=== PATIENT | female | born 1980 | race Caucasian/White ===

== ENCOUNTER 2017-06-17 09:50 | Emergency (ER) | payer OTHER ==
[~2017-06-17] VITALS: Ht 165.1 cm; Wt 53.0 kg
[2017-06-17 09:52] VITALS: Ht 165.1 cm; Wt 53.0 kg
[2017-06-17] MEDS ORDERED: HYDROCODONE/APAP (5/325) TAB PO STA (10:14)
--- NOTE | 2017-06-17 10:28 | ERD ---
ER Documentation Chief Complaint Date/Time DATE: 06/17/17 TIME: 10:24 Chief Complaint Complains of flank pain x 3 days HPI 36 year old female with history of ulcer presenting to the emergency depart complaining of moderate to severe left flank pain for the past three days. Patient denies fevers, nausea, vomiting, diarrhea, constipation, dysuria. She does admit that she started to have mild suprapubic pain today. Denies hematuria , denies taking medications ROS All systems reviewed and are negative except as per history of present illness. Medications Home Meds Active Scripts Metronidazole* (Flagyl*) 500 Mg Tablet, 500 MG PO TID for 7 Days, TAB Prov:LESVIA MILLARD PA-C 06/17/17 Ciprofloxacin Hcl* (Ciprofloxacin Hcl*) 500 Mg Tablet, 500 MG PO BID for 7 Days , TAB Prov:LESVIA MILLARD PA-C 06/17/17 Phenazopyridine Hcl* (Pyridium*) 200 Mg Tab, 200 MG PO TID Y for URINARY PAIN, # 6 TAB Prov:LESVIA MILLARD PA-C 06/17/17 Allergies Allergies: Coded Allergies: No Known Allergy (Unverified , 06/17/17) PMhx/Soc Medical and Surgical Hx: pt denies Medical Hx, pt denies Surgical Hx Hx Alcohol Use: No Hx Substance Use: No Hx Tobacco Use: No Physical Exam Vitals Vital Signs Date Time Temp Pulse Resp B/P Pulse Ox O2 Delivery O2 Flow Rate FiO2 06/17/17 09:52 98.2 70 20 112/62 98 Physical Exam GENERAL: well-developed/well-nourished, in no apparent distress, non-toxic appearing HENT: NC/AT, moist mucous membranes EYES: Conjunctiva normal NECK: Supple, no lymphadenopathy PULM: CTA bilaterally, no rales, rhonchi, or wheezing heard CV: Normal S1S2, RRR, good capillary refill GI: Soft, non-distended, tender to palpation left flank pain Normal bowel sounds, no masses or organomegaly felt on exam No gross peritonitis, no bruits Negative Rovsing, negative Bunch, negative McBurney's point, Negative CVAT BACK: No masses EXT: No clubbing, cyanosis, or edema NEURO: Alert and Orientated SKIN: Intact, normal turgor PSYCH: Normal mood and mentation Result Diagram: 06/17/17 1220 06/17/17 1220 Results 24 hrs Laboratory Tests Test 06/17/17 10:23 06/17/17 12:20 Urine Color YELLOW Urine Clarity CLEAR Urine pH 5.0 Urine Specific [place] 1.017 Urine Ketones NEGATIVEmg/dL Urine Nitrite NEGATIVEmg/dL Urine Bilirubin NEGATIVEmg/dL Urine Urobilinogen 1+mg/dL Urine Leukocyte Esterase 2+Betsy/ul Urine Microscopic RBC 2/HPF Urine Microscopic WBC 11/HPF Urine Squamous Epithelial Cells FEW/HPF Urine Bacteria FEW/HPF Urine Mucus FEW/HPF Urine Hemoglobin NEGATIVEmg/dL Urine Glucose NEGATIVEmg/dL Urine Total Protein NEGATIVEmg/dl White Blood Count 6.210^3/ul Red Blood Count 3.9110^6/ul Hemoglobin 11.8g/dl Hematocrit 34.5% Mean Corpuscular Volume 88.2fl Mean Corpuscular Hemoglobin 30.2pg Mean Corpuscular Hemoglobin Concent 34.2g/dl Red Cell Distribution Width 12.9% Platelet Count 90265^3/UL Mean Platelet Volume 11.5fl Neutrophils % 65.0% Lymphocytes % 26.5% Monocytes % 7.1% Eosinophils % 1.0% Basophils % 0.2% Nucleated Red Blood Cells % 0.0/100WBC Neutrophils # 4.010^3/ul Lymphocytes # 1.610^3/ul Monocytes # 0.410^3/ul Eosinophils # 0.110^3/ul Basophils # 0.010^3/ul Nucleated Red Blood Cells # 0.010^3/ul Sodium Level 140mmol/L Potassium Level 3.7mmol/L Chloride Level 106mmol/L Carbon Dioxide Level 28mmol/L Anion Gap 10 Blood Urea Nitrogen 8mg/dl Creatinine 0.76mg/dl Glucose Level 81mg/dl Calcium Level 8.8mg/dl Total Bilirubin 0.2mg/dl Direct Bilirubin 0.00mg/dl Indirect Bilirubin 0.2mg/dl Aspartate Amino Transf (AST/SGOT) 18IU/L Alanine Aminotransferase (ALT/SGPT) 34IU/L Alkaline Phosphatase 39IU/L Total Protein 6.5g/dl Albumin 3.5g/dl Globulin 3.00g/dl Albumin/Globulin Ratio 1.16 Lipase 37U/L Current Medications Medications (Trade) Dose Ordered Sig/[place] Route PRN Reason Start Time Stop Time Status Last Admin Dose Admin Acetaminophen/ Hydrocodone Bitart ([place] (5/325)) 2 tab ONCE STAT PO 06/17/17 10:14 06/17/17 10:15 DC 06/17/17 10:27 Ondansetron HCl (Zofran Odt) 8 mg ONCE STAT ODT 06/17/17 10:29 06/17/17 10:30 DC 06/17/17 10:36 Ceftriaxone Sodium (Rocephin) 1 gm ONCE STAT IM 06/17/17 10:59 06/17/17 11:00 DC 06/17/17 11:40 Lidocaine (Xylocaine 1% (Mdv) 20 ml) 20 ml ONCE STAT SC 06/17/17 11:23 06/17/17 11:24 DC 06/17/17 11:41 Procedures/MDM 36-year-old female presents to the emergency department complaining of left flank pain and suprapubic pain likely due to urinary tract infection. There is no evidence of pyelonephritis, nephrolithiasis. Urinalysis was positive for infection, urine test negative. Patient appears well, afebrile and stable vital signs. Lab work was drawn. CBC did not show any evidence of leukocytosis or anemia. CMP did not show any evidence of renal, liver, or electrolyte abnormalities. Lipase was normal. Patient and patient's mother were asking for CT scan since patient had history of an ulcer and having a referral to GI specialist. CT scan was done, radiologist stated CT abd and pelvis without contrast: 1. Enlarged appearance of the pancreas and peripancreatic fluid inflammatory changes, CONCERNING FOR ACUTE PANCREATITIS. Recommend correlation with amylase and lipase levels. No definite focal fluid collections. 2. Thickening of the palafox of the stomach and duodenum. Findings may be secondary to adjacent inflammation from pancreas. There is also thickening of the palafox of the transverse colon, concerning for focal colitis. 3. No evidence of bowel obstruction. The appendix is not clearly identified, however no inflammatory changes within the right lower quadrant. 4. No gross renal/ureteric calculi. No evidence of obstruction or hydronephrosis. 5. No definitive CT scan evidence of radiopaque gallstones. If concern for gallstones remain, ultrasound would be more sensitive. 6. Nonspecific free fluid within the pelvis. Although there was inflammation around pancreas and focal colitis, patient's lipase was 37. She was nontender in her abdomen, she had mild suprapubic tenderness due to cystitis. This is unlikely acute pancreatitis. Patient was given ceftriaxone in the ED, she was given prescription for Cipro and Flagyl for urinary tract infection and possible bacterial colitis. I discussed with her to continue to follow-up with a GI specialist. Return precautions given, she understands and agrees with plan Departure Diagnosis: Primary Impression: UTI (urinary tract infection) Additional Impression: Colitis Condition: Stable LESVIA MILLARD PA-C Jun 17, 2017 10:28
[2017-06-17] MEDS ORDERED: ONDANSETRON (ODT) 4 MG TAB ODT STA (10:29)
[2017-06-17 10:50] LABS: ADD UMIC YES; UR ASCORBIC ACID NEGATIVE (NEGATIVE); UR BACTERIA FEW /HPF (NONE SEEN); UR BILIRUBIN (Dip) NEGATIVE (NEGATIVE); UR BLOOD (Dip) NEGATIVE (NEGATIVE); UR CLARITY CLEAR (CLEAR); UR COLOR YELLOW (YELLOW); UR GLUCOSE (Dip) NEGATIVE (NEGATIVE); UR KETONES (Dip) NEGATIVE (NEGATIVE); UR LEUKOCYTE ESTERASE (Dip) 2+ Leu/ul (NEGATIVE); UR MUCUS FEW /HPF (NONE SEEN); UR NITRITE (Dip) NEGATIVE (NEGATIVE); UR RBC 2 /HPF (0-5); UR SPECIFIC GRAVITY (Dip) 1.017 (1.003-1.030); UR SQUAMOUS EPITHELIAL CELL FEW /HPF (FEW); UR TOTAL PROTEIN (Dip) NEGATIVE (NEGATIVE); UR UROBILINOGEN (Dip) 1+ mg/dL (NEGATIVE)
[2017-06-17] MEDS ORDERED: CEFTRIAXONE 1 GM INJ IM STA (10:59)
[2017-06-17] MEDS ORDERED: CEPH-443 PO (11:01)
[2017-06-17] MEDS ORDERED: PHEN-538 PO (11:03)
[2017-06-17] MEDS ORDERED: LIDOCAINE 1% (MDV) 20 ML INJ SC STA (11:23)
[2017-06-17 12:52] LABS: BASOPHILS % 0.2 % (0.0-2.0); EOSINOPHILS # 0.1 10^3/ul (0.0-0.5); HEMATOCRIT 34.5 % (37.0-47.0); HEMOGLOBIN 11.8 g/dl (12.0-16.0); LYMPHOCYTES # 1.6 10^3/ul (0.8-2.9); LYMPHOCYTES % 26.5 % (15.0-51.0); MEAN CORPUSCULAR HEMOGLOBIN 30.2 pg (29.0-33.0); MEAN CORPUSCULAR HGB CONC 34.2 g/dl (32.0-37.0); MEAN CORPUSCULAR VOLUME 88.2 fl (82.0-101.0); MEAN PLATELET VOLUME 11.5 fl (7.4-10.4); MONOCYTE # 0.4 10^3/ul (0.3-0.9); MONOCYTES % 7.1 % (0.0-11.0); PLATELET COUNT 171 10^3/UL (140-415); RED BLOOD COUNT 3.91 10^6/ul (4.20-5.40); RED CELL DISTRIBUTION WIDTH 12.9 % (11.5-14.5); WHITE BLOOD COUNT 6.2 10^3/ul (4.8-10.8)
[2017-06-17 12:59] LABS: ALBUMIN 3.5 g/dl (3.3-4.9); ALBUMIN/GLOBULIN RATIO 1.16; BILIRUBIN,INDIRECT 0.2 mg/dl (0-1.1); BILIRUBIN,TOTAL 0.2 mg/dl (0.2-1.3); CALCIUM 8.8 mg/dl (8.4-10.2); CREATININE 0.76 mg/dl (0.44-1.00); POTASSIUM 3.7 mmol/L (3.5-5.1); TOTAL PROTEIN 6.5 g/dl (6.1-8.1)
--- NOTE | 2017-06-17 13:39 | RADRPT ---
PROCEDURE: CT ABDOMEN AND PELVIS WITHOUT CONTRAST. CLINICAL INDICATION: Left flank pain TECHNIQUE: CT scan of the abdomen and pelvis without contrast was performed on a multidetector hig h-resolution CT scanner. The patient was scanned without intravenous contrast. Coronal and sagittal reformatted images were obtained from the axial source images. Images were reviewed on a high-resol [employer] PACS workstation. The total exam CTDI equals 6.0 mGy and the total exam DLP equals 321 mGy-cm. One or more of the following dose reduction techniques were used: Automated exposure control. Adjustment of the mA and/or kV according to patient size. Use of iterative reconstruction technique. COMPARISON: None FINDINGS: CT abdomen: The lung bases are clear. The heart size is within limits. There is no significant pericardial effus ion. Hepatic morphology is within normal limits. No gross contour deforming masses. The gallbladder is wi thin normal limits. No evidence of intrahepatic or extrahepatic biliary dilatation. Spleen is unremarkable. The pancreas appears to be enlarged and there also appears to be peripancrea tic fat stranding and fluid. Findings are worrisome for acute pancreatitis. No gross focal fluid col lections. Both adrenal glands are within normal limits. Both kidneys are an normal anatomic position. No gross renal/ureteric calculi. No evidence of obstru ction or hydronephrosis. Visualized GI tract demonstrates thickening of the palafox of the stomach and proximal duodenum. There is also marked thickening of the palafox of the transverse colon with adjacent fat stranding and infl ammatory changes. Stool and air filled large bowel. No evidence of bowel obstruction. The appendix i s not clearly identified, however no inflammatory changes in the right lower quadrant. The unenhanced aorta appears to within normal limits. Several shoddy retroperitoneal lymph nodes are noted. CT pelvis: The bladder is distended. Free fluid is noted in the pelvis. Uterus appears to be within normal limi ts. No significant pelvic lymphadenopathy. The visualized osseous structures appear to be within normal limits. IMPRESSION: 1. Enlarged appearance of the pancreas and peripancreatic fluid inflammatory changes, CONCERNING FOR ACUTE PANCREATITIS. Recommend correlation with amylase and lipase levels. No definite focal fluid c ollections. 2. Thickening of the palafox of the stomach and duodenum. Findings may be secondary to adjacent inflam mation from pancreas. There is also thickening of the palafox of the transverse colon, concerning for focal colitis. 3. No evidence of bowel obstruction. The appendix is not clearly identified, however no inflammatory changes within the right lower quadrant. 4. No gross renal/ureteric calculi. No evidence of obstruction or hydronephrosis. 5. No definitive CT scan evidence of radiopaque gallstones. If concern for gallstones remain, ultras ound would be more sensitive. 6. Nonspecific free fluid within the pelvis. RPTAT: AAPP Tiffanie Matson Physician Date Time Electronically viewed and signed by Tiffanie Matson Physician on 06/17/2017 13:39 JL/
[2017-06-17] MEDS ORDERED: METR500T PO (14:01)
[2017-06-17] MEDS ORDERED: CIPR500T4 PO (14:01)
[2017-06-17 14:35] VITALS: BP 112/62; PULSE 58; RESP 18; TEMP 98.1
== END 2017-06-17 14:56 | disposition home or self-care (01) ==
LOC: FTE 09:50
DX: N39.0 Urinary tract infection, site not specified (principal); K52.9 Noninfective gastroenteritis and colitis, unspecified
CPT/HCPCS: 74176; 80053; 81001; 83690; 85025; 96372; J0696; Z7502; Z7610